=== PATIENT | male | born 1965 | race African-American/Black ===

== ENCOUNTER 2017-10-08 20:57 | Emergency (ER) | payer MEDICAID ==
[~2017-10-08] VITALS: Ht 172.7 cm; Wt 64.0 kg
[2017-10-08] MEDS ORDERED: KETOROLAC 30MG/ML VIAL IM ONE (23:30)
[2017-10-09 02:05] VITALS: BP 122/88
== END 2017-10-09 02:05 | disposition home or self-care (01) ==
LOC: ER 20:57
DX: S20.219A Contusion of unspecified front wall of thorax, initial encounter (principal); S30.0XXA Contusion of lower back and pelvis, initial encounter; S60.221A Contusion of right hand, initial encounter; I10 Essential (primary) hypertension; Z98.890 Other specified postprocedural states; V43.52XA Car driver injured in collision with other type car in traffic accident, initial encounter; Y93.89 Activity, other specified; Y92.488 Other paved roadways as the place of occurrence of the external cause
CPT/HCPCS: 71045; 72100; 73130; 96372; 99284; J1885